=== PATIENT | female | born 1985 | race Hispanic/Latino ===

== ENCOUNTER 2019-02-11 17:38 | Emergency (ER) | payer OTHER ==
[2019-02-11] MEDS ORDERED: Acetaminophen 500 MG TAB ONE (19:24)
[2019-02-11 20:04] LABS: Bilirubin Negative (Negative); Blood, Urine Negative (Negative); Clarity Clear (Clear); Glucose, Urine (Dipstick) Normal (Negative); Leukocyte Negative Leu/uL (Negative); Nitrite Negative (Negative); Protein, Urine (Dipstick) Negative (Neg-Trace); Urobilinogen Normal mg/dL (Less than 2)
[2019-02-11 20:07] LABS: Pregnancy Test - Urine (BHCG) Negative (Negative); Pregu Control Background? CLEAR/WHITE (CLR/WHITE); Pregu Control Bar Appear? YES (CONTROL BAR); Specific Gravity 1.009 (1.002-1.036)
== END 2019-02-11 20:33 | disposition home or self-care (01) ==
LOC: ERS 17:38
DX: S39.011A Strain of muscle, fascia and tendon of abdomen, initial encounter (principal); E11.9 Type 2 diabetes mellitus without complications; I88.9 Nonspecific lymphadenitis, unspecified; E28.2 Polycystic ovarian syndrome; E03.9 Hypothyroidism, unspecified; F17.210 Nicotine dependence, cigarettes, uncomplicated; Z79.84 Long term (current) use of oral hypoglycemic drugs; X58.XXXA Exposure to other specified factors, initial encounter
CPT/HCPCS: 81003; 81025; 99284

== ENCOUNTER 2019-02-19 11:52 | Outpatient (CLI) | payer OTHER ==
--- NOTE | 2019-02-19 14:53 | ULT ---
SOFT TISSUE ULTRASOUND NECK: Date: 02/19/19 INDICATION: Directed ultrasound performed left neck at area of palpable abnormality. FINDINGS: At the site of concern, there is a small lymph node identified which measures approximately 5-7 mm. N o other sonographic abnormality identified. IMPRESSION: Small lymph nodes seen in left neck at area of palpable concern. POS: OFF
== END 2019-02-19 11:53 | disposition home or self-care (01) ==
LOC: BICULT 11:52
PROVIDERS: ATTEND Family Medicine
DX: M25.512 Pain in left shoulder (principal)
CPT/HCPCS: 76536

== ENCOUNTER 2021-02-15 12:37 | Outpatient (CLI) | payer OTHER | END 2021-02-15 12:38 | disposition home or self-care (01) | LOC: BICCT 12:37 | PROVIDERS: ATTEND Nurse Practitioner Family | DX: R10.12 Left upper quadrant pain (principal); N23 Unspecified renal colic; M43.17 Spondylolisthesis, lumbosacral region; Z87.42 Personal history of other diseases of the female genital tract | CPT/HCPCS: 74176 ==

== ENCOUNTER 2024-03-19 12:17 | Emergency (ER) | payer OTHER ==
[2024-03-19] MEDS ORDERED: methylPREDNISolone Sod Succ/PF 125 MG/2 ML VIAL ONE (12:59)
[2024-03-19] MEDS ORDERED: Ipratropium/Albuterol 3 ML NEB ONE (12:59)
== END 2024-03-19 14:49 | disposition home or self-care (01) ==
LOC: ERS 12:17
DX: J10.1 Influenza due to other identified influenza virus with other respiratory manifestations (principal); F17.210 Nicotine dependence, cigarettes, uncomplicated
CPT/HCPCS: 71046; 87428; 96374; J2919; J7620